=== PATIENT | male | born 1990 | race Caucasian/White ===

== ENCOUNTER 2018-01-23 17:43 | Emergency (ER) | payer MEDICAID, OTHER ==
[2018-01-23] MEDS: ONDANSETRON 4 MG INJ IV (17:58)
[2018-01-23] MEDS: morphine 4 MG/ML VIAL IV (17:58)
[2018-01-23] MEDS: PROPOFOL 200 MG INJ IV (18:59)
== END 2018-01-23 21:17 | disposition home or self-care (01) ==
LOC: E/R 17:43
DX: S53.124A Posterior dislocation of right ulnohumeral joint, initial encounter (principal); W10.9XXA Fall (on) (from) unspecified stairs and steps, initial encounter; Y92.9 Unspecified place or not applicable
CPT/HCPCS: 24600; 73080-RT; 94770; 96374; 96375; 99285-25